=== PATIENT | female | born 1965 | race African-American/Black ===

== ENCOUNTER 2020-06-09 16:03 | Emergency (ER) | payer MEDICAID, OTHER ==
[~2020-06-09] VITALS: Ht 162.6 cm; Wt 114.0 kg
[2020-06-09 16:06] VITALS: BP 198/126
[2020-06-09] MEDS ORDERED: ACETAMINOPHEN 325MG TABLET PO ONE (16:45)
[2020-06-09] MEDS ORDERED: HYDROCHLOROTHIAZIDE 25MG TABLET PO ONE (16:45)
== END 2020-06-09 18:54 | disposition home or self-care (01) ==
LOC: ER 16:03
DX: S09.8XXA Other specified injuries of head, initial encounter (principal); S16.1XXA Strain of muscle, fascia and tendon at neck level, initial encounter; M25.551 Pain in right hip; W22.8XXA Striking against or struck by other objects, initial encounter; Y93.89 Activity, other specified; Y92.091 Bathroom in other non-institutional residence as the place of occurrence of the external cause
CPT/HCPCS: 73502; 99285